=== PATIENT | male | born 1965 | race Caucasian/White ===

== ENCOUNTER 2018-03-14 17:41 | Emergency (ER) | payer MEDICAID ==
[~2018-03-14] VITALS: Ht 165.1 cm; Wt 88.6 kg
[2018-03-14] MEDS ORDERED: INSLAN SQ (18:02)
[2018-03-14] MEDS ORDERED: INSU100V SQ (18:02)
[2018-03-14] MEDS ORDERED: SODIUM CHLORIDE 0.9% 1,000 ML IV ONE (19:00)
[2018-03-14 19:25] LABS: EOSINOPHILS % (AUTO) 4.8 % (1.0-6.0); HEMATOCRIT 38.6 % (41-53); LYMPHOCYTES # (AUTO) 1.1 K/uL (1.0-4.8); LYMPHOCYTES % (AUTO) 22.9 % (22.0-44.0); MEAN CORPUSCULAR HGB CONC 33.7 G/dL (31.0-37.0); MEAN CORPUSCULAR VOLUME 89 fL (80-100); MONOCYTES # (AUTO) 0.5 K/uL (0.1-1.0); MONOCYTES % (AUTO) 11.4 % (2.0-9.0); NEUTROPHILS # (AUTO) 2.7 K/uL (1.8-7.7); NEUTROPHILS % (AUTO) 59.9 % (40.0-70.0); PLATELET COUNT (AUTO) 295 K/uL (150-450); RED BLOOD CELL COUNT(AUTO) 4.34 MIL/uL (4.50-5.90); RED CELL DISTRIBUTION WIDTH 14.6 % (11.5-14.5)
[2018-03-14 19:38] LABS: ALANINE AMINOTRANSFERASE 21 U/L (12-78); ALBUMIN 2.7 g/dL (3.4-5.0); ALKALINE PHOSPHATASE 87 U/L (46-116); ANION GAP 6 mmol/L (8-16); ASPARTATE AMINOTRANSFERASE 21 U/L (15-37); BILIRUBIN,TOTAL 0.3 mg/dL (0.1-1.0); CALCIUM, TOTAL 8.8 mg/dL (8.8-10.5); CARBON DIOXIDE 29 mmol/L (22-29); CHLORIDE 96 mmol/L (98-107); CREATININE 0.88 mg/dL (0.60-1.30); GLOMERULAR FILTR. RATE CALC > 60 mL/min (>60); POTASSIUM 4.4 mmol/L (3.5-5.1); SODIUM SERUM 131 mmol/L (136-145); TOTAL PROTEIN, SERUM 6.1 g/dL (6.4-8.2); UREA NITROGEN, BLOOD 11 mg/dL (7-18)
[2018-03-14 19:42] LABS: GLUCOSE,RANDOM 525 mg/dL (70-110)
[2018-03-14 21:14] LABS: GLUCOSE,POINT OF CARE 495 MG/DL (70-110)
[2018-03-14] MEDS ORDERED: INSULIN REGULAR, HUMAN 100 UNITS/ML IVP ONE (21:30)
[2018-03-14 22:01] LABS: GLUCOSE,POINT OF CARE 450 MG/DL (70-110)
[2018-03-14 22:41] VITALS: BP 136/80
[2018-03-14 22:54] LABS: GLUCOSE,POINT OF CARE 223 MG/DL (70-110)
== END 2018-03-14 23:05 | disposition home or self-care (01) ==
LOC: EMS 17:43
DX: E11.65 Type 2 diabetes mellitus with hyperglycemia (principal); F10.20 Alcohol dependence, uncomplicated; F12.90 Cannabis use, unspecified, uncomplicated; F15.90 Other stimulant use, unspecified, uncomplicated; F19.90 Other psychoactive substance use, unspecified, uncomplicated; F17.210 Nicotine dependence, cigarettes, uncomplicated; Z79.4 Long term (current) use of insulin; Y90.0 Blood alcohol level of less than 20 mg/100 ml
CPT/HCPCS: 80053; 82962; 85025; 96361; 96374; 99283; G0480; J1815; J7030

== ENCOUNTER 2018-03-15 08:39 | Emergency (ER) | payer MEDICAID ==
[~2018-03-15] VITALS: Ht 165.1 cm; Wt 79.1 kg
[~2018-03-15 08:39] MED LIST: INSLAN SQ; INSU100V SQ
[2018-03-15] MEDS ORDERED: SODIUM CHLORIDE 0.9% 1,000 ML IV ONE (09:00)
[2018-03-15] MEDS ORDERED: INSULIN REGULAR, HUMAN 100 UNITS/ML IVP ONE (09:15)
[2018-03-15 09:19] LABS: BASOPHILS % (AUTO) 0.9 % (0.0-2.0); EOSINOPHILS % (AUTO) 3.5 % (1.0-6.0); HEMATOCRIT 38.5 % (41-53); HEMOGLOBIN 12.7 g/dL (13.5-17.5); LYMPHOCYTES # (AUTO) 0.9 K/uL (1.0-4.8); LYMPHOCYTES % (AUTO) 18.8 % (22.0-44.0); MEAN CORPUSCULAR HEMOGLOBIN 29.9 pg (26.0-34.0); MEAN CORPUSCULAR HGB CONC 33.1 G/dL (31.0-37.0); MEAN CORPUSCULAR VOLUME 90 fL (80-100); MONOCYTES # (AUTO) 0.6 K/uL (0.1-1.0); MONOCYTES % (AUTO) 13.5 % (2.0-9.0); NEUTROPHILS # (AUTO) 2.9 K/uL (1.8-7.7); NEUTROPHILS % (AUTO) 63.3 % (40.0-70.0); PLATELET COUNT (AUTO) 296 K/uL (150-450); RED BLOOD CELL COUNT(AUTO) 4.26 MIL/uL (4.50-5.90); RED CELL DISTRIBUTION WIDTH 14.3 % (11.5-14.5)
[2018-03-15 09:34] LABS: ALANINE AMINOTRANSFERASE 24 U/L (12-78); ALBUMIN 2.8 g/dL (3.4-5.0); ALKALINE PHOSPHATASE 98 U/L (46-116); ANION GAP 6 mmol/L (8-16); ASPARTATE AMINOTRANSFERASE 22 U/L (15-37); BILIRUBIN,TOTAL 0.3 mg/dL (0.1-1.0); CALCIUM, TOTAL 8.8 mg/dL (8.8-10.5); CARBON DIOXIDE 27 mmol/L (22-29); CHLORIDE 95 mmol/L (98-107); CREATININE 0.72 mg/dL (0.60-1.30); GLOMERULAR FILTR. RATE CALC > 60 mL/min (>60); POTASSIUM 4.4 mmol/L (3.5-5.1); SODIUM SERUM 128 mmol/L (136-145); TOTAL PROTEIN, SERUM 6.1 g/dL (6.4-8.2); UREA NITROGEN, BLOOD 10 mg/dL (7-18)
[2018-03-15 09:36] LABS: GLUCOSE,RANDOM 520 mg/dL (70-110)
[2018-03-15] MEDS ORDERED: KETOROLAC TROMETHAMINE 30 MG/ML VIAL IVP ONE (11:45)
[2018-03-15 11:54] LABS: GLUCOSE,POINT OF CARE 252 MG/DL (70-110)
[2018-03-15 12:22] VITALS: BP 124/75
== END 2018-03-15 12:27 | disposition home or self-care (01) ==
LOC: EMS 08:40
DX: E11.65 Type 2 diabetes mellitus with hyperglycemia (principal); M54.5 Low back pain; G89.29 Other chronic pain; F17.210 Nicotine dependence, cigarettes, uncomplicated; F12.90 Cannabis use, unspecified, uncomplicated; F19.90 Other psychoactive substance use, unspecified, uncomplicated; F13.90 Sedative, hypnotic, or anxiolytic use, unspecified, uncomplicated; Z79.4 Long term (current) use of insulin
CPT/HCPCS: 36415; 80053; 82962; 85025; 96361; 96374; 96375; 99283; J1815; J1885; J7030

== ENCOUNTER 2018-03-17 10:58 | Emergency (ER) | payer MEDICAID ==
[~2018-03-17] VITALS: Ht 165.1 cm; Wt 79.1 kg
[2018-03-17] MEDS ORDERED: SODIUM CHLORIDE 0.9% 1,000 ML IV ONE (11:15)
[2018-03-17 11:33] LABS: BASOPHILS % (AUTO) 0.7 % (0.0-2.0); EOSINOPHILS % (AUTO) 2.9 % (1.0-6.0); HEMATOCRIT 38.5 % (41-53); HEMOGLOBIN 12.8 g/dL (13.5-17.5); LYMPHOCYTES # (AUTO) 1.5 K/uL (1.0-4.8); LYMPHOCYTES % (AUTO) 24.4 % (22.0-44.0); MEAN CORPUSCULAR HEMOGLOBIN 29.7 pg (26.0-34.0); MEAN CORPUSCULAR HGB CONC 33.4 G/dL (31.0-37.0); MEAN CORPUSCULAR VOLUME 89 fL (80-100); MONOCYTES # (AUTO) 0.8 K/uL (0.1-1.0); MONOCYTES % (AUTO) 13.9 % (2.0-9.0); NEUTROPHILS # (AUTO) 3.5 K/uL (1.8-7.7); NEUTROPHILS % (AUTO) 58.1 % (40.0-70.0); PLATELET COUNT (AUTO) 331 K/uL (150-450); RED BLOOD CELL COUNT(AUTO) 4.32 MIL/uL (4.50-5.90)
[2018-03-17 11:34] LABS: GLUCOSE,POINT OF CARE 59 MG/DL (70-110)
[2018-03-17 11:43] LABS: ANION GAP 9 mmol/L (8-16); CALCIUM, TOTAL 8.6 mg/dL (8.8-10.5); CARBON DIOXIDE 27 mmol/L (22-29); CHLORIDE 102 mmol/L (98-107); CREATININE 0.66 mg/dL (0.60-1.30); GLOMERULAR FILTR. RATE CALC > 60 mL/min (>60); GLUCOSE,RANDOM 55 mg/dL (70-110); POTASSIUM 3.3 mmol/L (3.5-5.1); SODIUM SERUM 138 mmol/L (136-145); UREA NITROGEN, BLOOD 11 mg/dL (7-18)
[2018-03-17 11:44] LABS: INR 0.9 (0.9-1.1); PROTHROMBIN TIME 9.9 SEC (9.4-11.6)
[2018-03-17 11:50] LABS: ALANINE AMINOTRANSFERASE 28 U/L (12-78); ALBUMIN 3.1 g/dL (3.4-5.0); ALKALINE PHOSPHATASE 76 U/L (46-116); ASPARTATE AMINOTRANSFERASE 29 U/L (15-37); BILIRUBIN,TOTAL 0.2 mg/dL (0.1-1.0); CREATINE KINASE, TOTAL ONLY 46 U/L (39-308); TOTAL PROTEIN, SERUM 6.5 g/dL (6.4-8.2)
[2018-03-17 11:57] LABS: B-TYPE NATRIURETIC PEPTIDE 24 pg/mL (0-100)
[2018-03-17 12:16] LABS: APPEARANCE,URINE CLEAR (CLEAR); BILIRUBIN,URINE NEGATIVE (NEGATIVE); GLUCOSE, URINE (UA) 250 mg/dL (NEGATIVE); KETONES,URINE NEGATIVE (NEGATIVE); LEUKOCYTE ESTERASE ,URINE NEGATIVE (NEGATIVE); NITRATE,URINE NEGATIVE (NEGATIVE); OCCULT BLOOD,URINE NEGATIVE (NEGATIVE); PROTEIN,URINE NEGATIVE (NEGATIVE); UROBILINOGEN,URINE 0.2 mg/dL (<=1.0)
[2018-03-17 12:32] LABS: BACTERIA,URINE None Seen /HPF (None Seen); RBC,URINE None Seen /HPF (0-2); SQUAMOUS EPITHELIAL CELL,UR Rare /LPF (None Seen)
[2018-03-17 12:44] LABS: GLUCOSE,POINT OF CARE 109 MG/DL (70-110)
[2018-03-17 13:02] VITALS: BP 107/69
== END 2018-03-17 15:45 | disposition home or self-care (01) ==
LOC: EMS 11:00
DX: F10.129 Alcohol abuse with intoxication, unspecified (principal); E11.649 Type 2 diabetes mellitus with hypoglycemia without coma; F17.210 Nicotine dependence, cigarettes, uncomplicated; F12.90 Cannabis use, unspecified, uncomplicated; F19.90 Other psychoactive substance use, unspecified, uncomplicated; F13.10 Sedative, hypnotic or anxiolytic abuse, uncomplicated; Z79.4 Long term (current) use of insulin; Y90.8 Blood alcohol level of 240 mg/100 ml or more
CPT/HCPCS: 36415; 71045; 80053; 81001; 82550; 82962; 83880; 84484; 85025; 85610; 85730; 93005; 96360; 99285; G0480; J7030

== ENCOUNTER 2018-03-22 20:12 | Emergency (ER) | payer MEDICAID ==
[~2018-03-22] VITALS: Ht 167.6 cm; Wt 65.9 kg
[2018-03-22] MEDS ORDERED: LIB5 PO (20:38)
[2018-03-22] MEDS ORDERED: METF-960 PO (20:38)
[2018-03-22] MEDS ORDERED: PROZ10 PO (20:38)
[2018-03-22] MEDS ORDERED: SODIUM CHLORIDE 0.9% 2,000 ML IV ONE (20:42)
[2018-03-22] MEDS ORDERED: INSULIN REGULAR, HUMAN 100 UNITS/ML IVP ONE (20:45)
[2018-03-22 20:49] LABS: GLUCOSE,POINT OF CARE > 600 MG/DL (70-110)
[2018-03-22 21:35] LABS: HEMATOCRIT 33.8 % (41-53); HEMOGLOBIN 11.4 g/dL (13.5-17.5); LYMPHOCYTES # (AUTO) 1.9 K/uL (1.0-4.8); LYMPHOCYTES % (AUTO) 49.8 % (22.0-44.0); MEAN CORPUSCULAR HEMOGLOBIN 29.3 pg (26.0-34.0); MEAN CORPUSCULAR HGB CONC 33.8 G/dL (31.0-37.0); MEAN CORPUSCULAR VOLUME 87 fL (80-100); MONOCYTES # (AUTO) 0.5 K/uL (0.1-1.0); NEUTROPHILS # (AUTO) 1.2 K/uL (1.8-7.7); NEUTROPHILS % (AUTO) 31.2 % (40.0-70.0); PLATELET COUNT (AUTO) 339 K/uL (150-450); RED CELL DISTRIBUTION WIDTH 14.1 % (11.5-14.5)
[2018-03-22 22:02] LABS: ALANINE AMINOTRANSFERASE 35 U/L (12-78); ALBUMIN 3.1 g/dL (3.4-5.0); ALKALINE PHOSPHATASE 110 U/L (46-116); ANION GAP 13 mmol/L (8-16); ASPARTATE AMINOTRANSFERASE 34 U/L (15-37); BILIRUBIN,TOTAL 0.3 mg/dL (0.1-1.0); CARBON DIOXIDE 25 mmol/L (22-29); CHLORIDE 95 mmol/L (98-107); CREATININE 0.86 mg/dL (0.60-1.30); GLOMERULAR FILTR. RATE CALC > 60 mL/min (>60); LIPASE 468 U/L (73-393); POTASSIUM 3.7 mmol/L (3.5-5.1); SODIUM SERUM 133 mmol/L (136-145); TOTAL PROTEIN, SERUM 6.4 g/dL (6.4-8.2); UREA NITROGEN, BLOOD 9 mg/dL (7-18)
[2018-03-22 22:25] LABS: GLUCOSE,RANDOM 609 mg/dL (70-110)
[2018-03-22 22:33] LABS: B-TYPE NATRIURETIC PEPTIDE 25 pg/mL (0-100)
[2018-03-22 22:39] LABS: GLUCOSE,POINT OF CARE 265 MG/DL (70-110)
[2018-03-22] MEDS ORDERED: SODIUM CHLORIDE 0.9% 1,000 ML IV ONE (22:45)
[2018-03-22 23:09] VITALS: BP 107/65
== END 2018-03-22 23:10 | disposition left against medical advice (07) ==
LOC: EMS 20:13
DX: E11.65 Type 2 diabetes mellitus with hyperglycemia (principal); F10.129 Alcohol abuse with intoxication, unspecified; F41.9 Anxiety disorder, unspecified; E11.9 Type 2 diabetes mellitus without complications; F17.210 Nicotine dependence, cigarettes, uncomplicated; Z79.84 Long term (current) use of oral hypoglycemic drugs; Y90.8 Blood alcohol level of 240 mg/100 ml or more
CPT/HCPCS: 80053; 82962; 83690; 83880; 84484; 85025; 96361; 96374; 99283; G0480; J1815; J7030

== ENCOUNTER 2018-06-10 13:28 | Emergency (ER) | payer MEDICAID ==
[~2018-06-10] VITALS: Ht 162.6 cm; Wt 81.8 kg
[~2018-06-10 13:28] MED LIST changes: -INSLAN SQ; -INSU100V SQ; +LIB5 PO; +METF-960 PO; +PROZ10 PO
[2018-06-10] MEDS ORDERED: INSULIN REGULAR, HUMAN 100 UNITS/ML IVP ONE (15:30)
[2018-06-10] MEDS ORDERED: SODIUM CHLORIDE 0.9% 1,000 ML IV ONE (15:30)
[2018-06-10 15:58] LABS: BASOPHILS % (AUTO) 0.5 % (0.0-2.0); EOSINOPHILS % (AUTO) 4.4 % (1.0-6.0); HEMOGLOBIN 12.5 g/dL (13.5-17.5); LYMPHOCYTES # (AUTO) 1.1 K/uL (1.0-4.8); LYMPHOCYTES % (AUTO) 21.6 % (22.0-44.0); MEAN CORPUSCULAR HEMOGLOBIN 27.3 pg (26.0-34.0); MEAN CORPUSCULAR HGB CONC 32.8 G/dL (31.0-37.0); MEAN CORPUSCULAR VOLUME 83 fL (80-100); MONOCYTES # (AUTO) 0.6 K/uL (0.1-1.0); MONOCYTES % (AUTO) 11.1 % (2.0-9.0); NEUTROPHILS # (AUTO) 3.3 K/uL (1.8-7.7); NEUTROPHILS % (AUTO) 62.4 % (40.0-70.0); PLATELET COUNT (AUTO) 290 K/uL (150-450); RED BLOOD CELL COUNT(AUTO) 4.57 MIL/uL (4.50-5.90); RED CELL DISTRIBUTION WIDTH 15.7 % (11.5-14.5)
[2018-06-10 16:09] LABS: ANION GAP 9 mmol/L (8-16); CALCIUM, TOTAL 8.7 mg/dL (8.8-10.5); CARBON DIOXIDE 26 mmol/L (22-29); CHLORIDE 97 mmol/L (98-107); CREATININE 0.78 mg/dL (0.60-1.30); GLOMERULAR FILTR. RATE CALC > 60 mL/min (>60); GLUCOSE,RANDOM 308 mg/dL (70-110); POTASSIUM 3.9 mmol/L (3.5-5.1); SODIUM SERUM 132 mmol/L (136-145); UREA NITROGEN, BLOOD 10 mg/dL (7-18)
[2018-06-10 16:15] LABS: ALANINE AMINOTRANSFERASE 37 U/L (12-78); ALBUMIN 3.5 g/dL (3.4-5.0); ALKALINE PHOSPHATASE 111 U/L (46-116); ASPARTATE AMINOTRANSFERASE 35 U/L (15-37); BILIRUBIN,TOTAL 0.5 mg/dL (0.1-1.0); LIPASE 132 U/L (73-393); TOTAL PROTEIN, SERUM 7.3 g/dL (6.4-8.2)
[2018-06-10 16:22] LABS: B-TYPE NATRIURETIC PEPTIDE 36 pg/mL (0-100)
[2018-06-10 17:02] LABS: APPEARANCE,URINE CLEAR (CLEAR); GLUCOSE, URINE (UA) >=1000 mg/dL (NEGATIVE); KETONES,URINE 15 mg/dL (NEGATIVE); LEUKOCYTE ESTERASE ,URINE NEGATIVE (NEGATIVE); NITRATE,URINE NEGATIVE (NEGATIVE); OCCULT BLOOD,URINE NEGATIVE (NEGATIVE); PROTEIN,URINE NEGATIVE (NEGATIVE); UROBILINOGEN,URINE 0.2 mg/dL (<=1.0)
[2018-06-10 17:04] LABS: AMPHET/METH SCREEN,URINE POSITIVE (NEGATIVE); BARBITURATE SCREEN, URINE NEGATIVE (NEGATIVE); BENZODIAZEPINES SCREEN,URINE POSITIVE (NEGATIVE); BILIRUBIN,URINE PRELIM. POSITIVE (NEGATIVE); CANNABINOID SCREEN,URINE POSITIVE (NEGATIVE); COCAINE SCREEN,URINE NEGATIVE (NEGATIVE); METHADONE SCREEN, URINE NEGATIVE (NEGATIVE); OPIATE SCREEN,URINE POSITIVE (NEGATIVE)
[2018-06-10 17:06] LABS: PHENCYCLIDINE SCREEN,URINE NEGATIVE (NEGATIVE)
[2018-06-10 17:20] LABS: GLUCOSE,POINT OF CARE 256 MG/DL (70-110)
[2018-06-10 17:22] LABS: BACTERIA,URINE Rare /HPF (None Seen); RBC,URINE None Seen /HPF (0-2); SQUAMOUS EPITHELIAL CELL,UR Rare /LPF (None Seen); WBC,URINE 0-2 /HPF (0-5)
[2018-06-10 18:14] VITALS: BP 110/69
== END 2018-06-10 18:31 | disposition home or self-care (01) ==
LOC: EMS 13:28
DX: J40 Bronchitis, not specified as acute or chronic (principal); E11.65 Type 2 diabetes mellitus with hyperglycemia; F10.10 Alcohol abuse, uncomplicated; F17.210 Nicotine dependence, cigarettes, uncomplicated; F41.9 Anxiety disorder, unspecified; Y90.0 Blood alcohol level of less than 20 mg/100 ml; Z79.84 Long term (current) use of oral hypoglycemic drugs; Z79.899 Other long term (current) drug therapy
CPT/HCPCS: 36415; 71045; 80053; 80307; 81001; 82962; 83690; 83880; 84484; 85025; 87430; 93005; 96361; 96374; 99285; 99406; G0480; J1815; J7030

== ENCOUNTER 2018-06-16 13:07 | Emergency (ER) | payer MEDICAID ==
[~2018-06-16] VITALS: Ht 165.1 cm; Wt 75.9 kg
[2018-06-16] MEDS ORDERED: INSNOV SQ (13:23)
[2018-06-16] MEDS ORDERED: INSLAN SQ (13:23)
[2018-06-16] MEDS ORDERED: 0.9% SODIUM CHLORIDE 10 ML SYRINGE IVP PRN (16:00)
[2018-06-16 16:23] LABS: BASOPHILS % (AUTO) 0.6 % (0.0-2.0); EOSINOPHILS % (AUTO) 2.9 % (1.0-6.0); HEMATOCRIT 36.3 % (41-53); HEMOGLOBIN 12.2 g/dL (13.5-17.5); LYMPHOCYTES # (AUTO) 1.4 K/uL (1.0-4.8); LYMPHOCYTES % (AUTO) 16.6 % (22.0-44.0); MEAN CORPUSCULAR HEMOGLOBIN 27.6 pg (26.0-34.0); MEAN CORPUSCULAR HGB CONC 33.7 G/dL (31.0-37.0); MEAN CORPUSCULAR VOLUME 82 fL (80-100); MONOCYTES # (AUTO) 0.8 K/uL (0.1-1.0); MONOCYTES % (AUTO) 9.2 % (2.0-9.0); NEUTROPHILS # (AUTO) 5.8 K/uL (1.8-7.7); NEUTROPHILS % (AUTO) 70.7 % (40.0-70.0); PLATELET COUNT (AUTO) 270 K/uL (150-450); RED BLOOD CELL COUNT(AUTO) 4.44 MIL/uL (4.50-5.90)
[2018-06-16 16:34] LABS: ANION GAP 8 mmol/L (8-16); CALCIUM, TOTAL 8.2 mg/dL (8.8-10.5); CARBON DIOXIDE 27 mmol/L (22-29); CHLORIDE 95 mmol/L (98-107); GLOMERULAR FILTR. RATE CALC > 60 mL/min (>60); GLUCOSE,RANDOM 348 mg/dL (70-110); POTASSIUM 3.8 mmol/L (3.5-5.1); SODIUM SERUM 130 mmol/L (136-145); UREA NITROGEN, BLOOD 10 mg/dL (7-18)
[2018-06-16 16:43] LABS: ALANINE AMINOTRANSFERASE 28 U/L (12-78); ALBUMIN 2.9 g/dL (3.4-5.0); ALKALINE PHOSPHATASE 104 U/L (46-116); ASPARTATE AMINOTRANSFERASE 20 U/L (15-37); BILIRUBIN,TOTAL 0.3 mg/dL (0.1-1.0); TOTAL PROTEIN, SERUM 6.3 g/dL (6.4-8.2)
[2018-06-16] MEDS ORDERED: IOVERSOL 320 MG/ML 100 ML VIAL ONE (17:46)
[2018-06-16] MEDS ORDERED: SODIUM CHLORIDE 0.9% 100 ML ONE (17:46)
[2018-06-16] MEDS ORDERED: KETOROLAC TROMETHAMINE 30 MG/ML VIAL IVP ONE (18:45)
[2018-06-16] MEDS ORDERED: PIPERACILLIN/TAZO 3.375 GM/D5W 50 ML IV ONE (19:45)
[2018-06-16] MEDS ORDERED: VANCOMYCIN HCL 1 GM/D5% WATER 200 ML IV ONE (19:45)
[2018-06-16] MEDS ORDERED: INSULIN REGULAR, HUMAN 100 UNITS/ML SQ ONE (20:00)
[2018-06-16 20:19] LABS: GLUCOSE,POINT OF CARE 427 MG/DL (70-110)
[2018-06-16 23:24] VITALS: BP 120/71
== END 2018-06-16 23:34 | disposition home or self-care (01) ==
LOC: EMS 13:07
DX: L03.113 Cellulitis of right upper limb (principal); E11.9 Type 2 diabetes mellitus without complications; F41.9 Anxiety disorder, unspecified; F17.210 Nicotine dependence, cigarettes, uncomplicated; Z79.4 Long term (current) use of insulin; Z79.899 Other long term (current) drug therapy
CPT/HCPCS: 36415; 73201; 80053; 82962; 83605; 85025; 87040; 96365; 96366; 96367; 96372; 96375; 99285; J1815; J1885; J2543; J3370; J7050; Q9967

== ENCOUNTER 2018-06-18 20:56 | Emergency (ER) | payer MEDICAID ==
[~2018-06-18] VITALS: Ht 165.1 cm; Wt 74.5 kg
[~2018-06-18 20:56] MED LIST changes: +INSLAN SQ; +INSNOV SQ; -METF-960 PO
[2018-06-18 21:59] LABS: BASOPHILS % (AUTO) 0.6 % (0.0-2.0); EOSINOPHILS % (AUTO) 6.7 % (1.0-6.0); HEMATOCRIT 35.1 % (41-53); HEMOGLOBIN 11.4 g/dL (13.5-17.5); LYMPHOCYTES # (AUTO) 1.2 K/uL (1.0-4.8); LYMPHOCYTES % (AUTO) 20.5 % (22.0-44.0); MEAN CORPUSCULAR HEMOGLOBIN 27.2 pg (26.0-34.0); MEAN CORPUSCULAR HGB CONC 32.6 G/dL (31.0-37.0); MEAN CORPUSCULAR VOLUME 84 fL (80-100); MONOCYTES # (AUTO) 0.5 K/uL (0.1-1.0); MONOCYTES % (AUTO) 8.3 % (2.0-9.0); NEUTROPHILS # (AUTO) 3.8 K/uL (1.8-7.7); NEUTROPHILS % (AUTO) 63.9 % (40.0-70.0); PLATELET COUNT (AUTO) 263 K/uL (150-450); RED CELL DISTRIBUTION WIDTH 16.1 % (11.5-14.5)
[2018-06-18 22:15] LABS: ALANINE AMINOTRANSFERASE 25 U/L (12-78); ALBUMIN 2.8 g/dL (3.4-5.0); ALKALINE PHOSPHATASE 89 U/L (46-116); ANION GAP 6 mmol/L (8-16); ASPARTATE AMINOTRANSFERASE 18 U/L (15-37); BILIRUBIN,TOTAL 0.2 mg/dL (0.1-1.0); CALCIUM, TOTAL 8.4 mg/dL (8.8-10.5); CARBON DIOXIDE 27 mmol/L (22-29); CHLORIDE 97 mmol/L (98-107); CREATININE 1.19 mg/dL (0.60-1.30); GLOMERULAR FILTR. RATE CALC > 60 mL/min (>60); POTASSIUM 4.7 mmol/L (3.5-5.1); SODIUM SERUM 130 mmol/L (136-145); TOTAL PROTEIN, SERUM 6.3 g/dL (6.4-8.2); UREA NITROGEN, BLOOD 13 mg/dL (7-18)
[2018-06-18 22:17] LABS: GLUCOSE,RANDOM 564 mg/dL (70-110)
[2018-06-18] MEDS ORDERED: LIDOCAINE 1%/EPI 1:200,000/PF 10 ML VIAL INJ ONE (22:30)
[2018-06-18] MEDS ORDERED: CLINDAMYCIN 900 MG/D5% WATER 50 ML IV ONE (22:30)
[2018-06-18] MEDS ORDERED: KETOROLAC TROMETHAMINE 30 MG/ML VIAL IVP ONE (22:30)
[2018-06-18] MEDS ORDERED: INSULIN REGULAR, HUMAN 100 UNITS/ML IVP ONE (22:30)
[2018-06-18] MEDS ORDERED: SODIUM CHLORIDE 0.9% 1,000 ML IV ONE (22:30)
[2018-06-18] MEDS ORDERED: MORPHINE SULFATE 4 MG/ML SYRINGE IVP ONE (23:45)
[2018-06-18 23:54] LABS: GLUCOSE,POINT OF CARE 380 MG/DL (70-110)
[2018-06-19] MEDS ORDERED: INSULIN REGULAR, HUMAN 100 UNITS/ML IVP ONE
[2018-06-19 00:39] LABS: GLUCOSE,POINT OF CARE 230 MG/DL (70-110)
[2018-06-19 00:49] VITALS: BP 122/68
== END 2018-06-19 00:36 | disposition home or self-care (01) ==
LOC: EMS 20:56
DX: L03.113 Cellulitis of right upper limb (principal); F41.9 Anxiety disorder, unspecified; F17.210 Nicotine dependence, cigarettes, uncomplicated; E11.9 Type 2 diabetes mellitus without complications; Z79.4 Long term (current) use of insulin
CPT/HCPCS: 10060; 36415; 80053; 82962; 85025; 96365; 96375; 96376; 99283; J1815 ×2; J1885; J2270; J3490 ×2; J7030; 82948

== ENCOUNTER 2018-06-19 17:36 | Emergency (ER) | payer MEDICAID ==
[~2018-06-19] VITALS: Ht 165.1 cm; Wt 74.5 kg
[2018-06-19 19:03] LABS: BASOPHILS % (AUTO) 0.4 % (0.0-2.0); EOSINOPHILS % (AUTO) 5.9 % (1.0-6.0); HEMATOCRIT 35.4 % (41-53); HEMOGLOBIN 11.9 g/dL (13.5-17.5); LYMPHOCYTES # (AUTO) 1.1 K/uL (1.0-4.8); LYMPHOCYTES % (AUTO) 15.1 % (22.0-44.0); MEAN CORPUSCULAR HGB CONC 33.6 G/dL (31.0-37.0); MEAN CORPUSCULAR VOLUME 83 fL (80-100); MONOCYTES # (AUTO) 0.6 K/uL (0.1-1.0); MONOCYTES % (AUTO) 7.5 % (2.0-9.0); NEUTROPHILS # (AUTO) 5.3 K/uL (1.8-7.7); NEUTROPHILS % (AUTO) 71.1 % (40.0-70.0); PLATELET COUNT (AUTO) 332 K/uL (150-450); RED BLOOD CELL COUNT(AUTO) 4.26 MIL/uL (4.50-5.90); RED CELL DISTRIBUTION WIDTH 15.7 % (11.5-14.5)
[2018-06-19 19:13] LABS: ACETONE,BLOOD NEGATIVE (NEGATIVE)
[2018-06-19 19:24] LABS: LACTIC ACID 1.7 mmol/L (0.4-2.0)
[2018-06-19 19:28] LABS: ALANINE AMINOTRANSFERASE 24 U/L (12-78); ALKALINE PHOSPHATASE 96 U/L (46-116); ANION GAP 5 mmol/L (8-16); ASPARTATE AMINOTRANSFERASE 18 U/L (15-37); BILIRUBIN,TOTAL 0.2 mg/dL (0.1-1.0); CALCIUM, TOTAL 8.7 mg/dL (8.8-10.5); CARBON DIOXIDE 30 mmol/L (22-29); CHLORIDE 96 mmol/L (98-107); CREATININE 1.02 mg/dL (0.60-1.30); GLOMERULAR FILTR. RATE CALC > 60 mL/min (>60); SODIUM SERUM 131 mmol/L (136-145); TOTAL PROTEIN, SERUM 6.7 g/dL (6.4-8.2); UREA NITROGEN, BLOOD 15 mg/dL (7-18)
[2018-06-19 19:32] LABS: GLUCOSE,RANDOM 520 mg/dL (70-110)
[2018-06-19] MEDS ORDERED: INSULIN REGULAR, HUMAN 100 UNITS/ML IVP ONE ×2 (20:45→22:15)
[2018-06-19] MEDS ORDERED: SODIUM CHLORIDE 0.9% 1,000 ML IV ONE ×2 (20:45→22:15)
[2018-06-19] MEDS ORDERED: KETOROLAC TROMETHAMINE 30 MG/ML VIAL IVP ONE (21:15)
[2018-06-19 22:09] LABS: GLUCOSE,POINT OF CARE 550 MG/DL (70-110)
[2018-06-19 22:34] LABS: GLUCOSE,POINT OF CARE 480 MG/DL (70-110)
[2018-06-19 23:34] LABS: GLUCOSE,POINT OF CARE 363 MG/DL (70-110)
[2018-06-19 23:37] VITALS: BP 116/73
== END 2018-06-20 00:29 | disposition home or self-care (01) ==
LOC: EMS 17:37
DX: E11.65 Type 2 diabetes mellitus with hyperglycemia (principal); L02.413 Cutaneous abscess of right upper limb; F41.9 Anxiety disorder, unspecified; F17.210 Nicotine dependence, cigarettes, uncomplicated; F11.90 Opioid use, unspecified, uncomplicated; F13.10 Sedative, hypnotic or anxiolytic abuse, uncomplicated; Z79.4 Long term (current) use of insulin
CPT/HCPCS: 36415; 80053; 82009; 82948; 82962; 83605; 85025; 96361; 96374; 96375; 96376; 99283; J1815; J1885; J7030